=== PATIENT | female | born 1980 | race Caucasian/White ===

== ENCOUNTER → 2016-09-01 | Outpatient (CLI) | payer OTHER | LOC: BMCIMAGING 16:21 | PROVIDERS: ATTEND Nurse Practitioner Adult Health | DX: M25.531 Pain in right wrist (principal) ==

== ENCOUNTER 2017-04-22 12:30 | Day surgery (SDC) | payer MEDICAID ==
[2017-04-22] MEDS ORDERED: LR 1,000 ML IV ONE (12:57)
[2017-04-22] MEDS ORDERED: LIDOCAINE 1% 2 ML INJ ID PRN (12:57)
[2017-04-22] MEDS ORDERED: LIDOCAINE 2% 5 ML SDV ONE (13:34)
[2017-04-22] MEDS ORDERED: PROPOFOL/EMULSION 500 MG/50 ML BOTTLE IV ONE (13:35)
[2017-04-22 13:38] VITALS: PULSE 73; TEMP 97.9
--- NOTE | 2017-04-22 13:39 | PDANEPAE ---
ANE Past Medical History - Cardiovascular History Hx Hypertension: No Hx Arrhythmias: No Hx Chest Pain: No Hx Coronary Artery / Peripheral Vascular Disease: No Hx CHF / Valvular Disease: No Hx Palpitations: No - Pulmonary History Hx COPD: No Hx Asthma/Reactive Airway Disease: No Hx Recent Upper Respiratory Infection: No Hx Oxygen in Use at Home: No Hx Sleep Apnea: No Sleep Apnea Screening Result - Last Documented: Negative - Neurologic History Hx Cerebrovascular Accident: No Hx Seizures: No Hx Dementia: No - Endocrine History Hx Diabetes: No - Renal History Hx Renal Disorders: No - Liver History Hx Hepatic Disorders: No - Neurological & Psychiatric Hx Hx Neurological and Psychiatric Disorders: Yes Neurological / Psychiatric History Comment: Rx for depression,anxiety - Cancer History Hx Cancer: No - Congenital Disorder History Hx Congenital Disorders: No - GI History Hx Gastrointestinal Disorders: Yes Gastrointestinal History Comment: Bloating,diarrhea, gas x years. Gluten-free diet x 6 yrs due to stool sample-test for celiac disease. Gene test:disposition toward celiac. 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 - Chronic Pain History Chronic Pain: No - Surgical History Prior Surgeries: wisdom teeth extraction-Dr's office. ANE Review of Systems Review of Systems: - Exercise capacity METS (RN): 5 METS ANE Patient History - Allergies Allergies/Adverse Reactions: gluten Allergy (Verified 04/07/17 15:36) Penicillins Allergy (Verified 04/07/17 15:35) Hives - Home Medications Home Medications: CIMETIDINE 04/07/17 [Last Taken Unknown] Citalopram 04/07/17 [Last Taken Unknown] - NPO status NPO Since - Liquids (Date): 04/21/17 NPO Since - Liquids (Time): 11:30 NPO Since - Solids (Date): 04/20/17 NPO Since - Solids (Time): 21:00 - Smoking Hx Smoking Status: Never smoked ANE Labs/Vital Signs - Vital Signs Blood Pressure: 107/59 Heart Rate: 73 Respiratory Rate: 16 O2 Sat (%): 100 Height: 154.94 cm Weight: 49.895 kg ANE Physical Exam - Airway Neck exam: FROM Mallampati Score: Class 1 Mouth exam: normal dental/mouth exam - Pulmonary Pulmonary: no respiratory distress, no rales or rhonchi - Cardiovascular Cardiovascular: regular rate and rhythym, no murmur, rub, or gallop, pulses symmetric bilaterally - ASA Status ASA Status: I ANE Anesthesia Plan Anesthesia Plan: MAC
[2017-04-22] MEDS ORDERED: LR 500 ML IV PRN (13:44)
[2017-04-22] MEDS ORDERED: fentaNYL 100 MCG/2 ML INJ IVP PRN (13:44)
[2017-04-22] MEDS ORDERED: DEXAMETHASONE 4 MG/ML VIAL IVP PRN (13:44)
[2017-04-22] MEDS ORDERED: ACETAMINOPHEN 500 MG TAB PO PRN (13:44)
[2017-04-22] MEDS ORDERED: HYDROCODONE/APAP 5/325 TAB PO PRN (13:44)
[2017-04-22] MEDS ORDERED: NALOXONE HCL 0.4 MG/ML INJ IVP PRN (13:44)
[2017-04-22] MEDS ORDERED: OXYCODONE/APAP 5/325 TAB PO PRN (13:44)
[2017-04-22] MEDS ORDERED: ALBUTEROL 3 ML DEYVIAL IH PRN (13:44)
[2017-04-22] MEDS ORDERED: ONDANSETRON 4 MG/2 ML VIAL IVP PRN (13:44)
--- NOTE | 2017-04-22 14:01 | GIREPORT ---
[facility] Surgical Services - Endoscopy Department Patient Name: Vanessa Cristobal Procedure Date: 04/22/2017 1:35 PM Patient Type: Outpatient Attending MD/ ER Physician: Jose Antonio Ace MD Procedure: Colonoscopy Indications: Chronic diarrhea Providers: Jose Antonio Ace MD Medicines: General Anesthesia Complications: No immediate complications. Description of Procedure: After obtaining informed consent, the scope was passed under direct vis ion. Throughout the procedure, the patient's blood pressure, pulse, and oxyg en saturations were monitored continuously. The Colonoscope with irrigatio n channel was introduced through the anus and advanced to 10 cm into the ileum. The entire colon was examined. Findings: The entire examined colon appeared normal on direct and retroflexion vi ews. Biopsies for histology were taken with a cold forceps from the entire c olon for evaluation of microscopic colitis. Terminal ileum was also biopsied . Verification of patient identification for the specimens were done. The se were biopsied with a cold forceps for histology. Estimated Blood Loss: Estimated blood loss: none. Post Op Diagnosis: - The entire examined colon is normal on direct and retroflexion views. - No specimens collected. Recommendation: - Discharge patient to home. - Resume previous diet. - Continue present medications. - Await pathology results. Attending Participation: I personally performed the entire procedure. Jose Antonio Ace MD Jose Antonio Ace MD 04/22/2017 2:00:46 PM This report has been signed electronically.Jose Antonio Ace MD Number of Addenda: 0 Note Initiated On: 04/22/2017 1:35 PM Total Procedure Duration Time 0 hours 7 minutes 15 seconds [email or web address]
--- NOTE | 2017-04-22 14:07 | POSTANESTH ---
Post Anesthetic Evaluation Cardiovascular Status: Normal, Stable Respiratory Status: Normal, Stable Level of Consciousness/Mental Status: Can Participate in Eval Pain Control: Adequate, Prn Tx Ordered Nausea/Vomiting Control: Adequate, Prn Tx Ordered Complications Possibly Related to Anesthesia: None Noted
[2017-04-22 14:28] VITALS: RESP 14
[2017-04-22 14:48] VITALS: BP 93/58; O2SAT 99
== END 2017-04-22 16:18 | disposition home or self-care (01) ==
LOC: FSGY 12:30
PROVIDERS: ATTEND Internal Medicine Gastroenterology
DX: R19.7 Diarrhea, unspecified (principal); R14.0 Abdominal distension (gaseous); K90.0 Celiac disease
CPT/HCPCS: J2704

== ENCOUNTER → 2017-06-17 | Outpatient (CLI) | payer MEDICAID | LOC: FIMAGING 09:15 | PROVIDERS: ATTEND Physician Assistant | DX: R10.11 Right upper quadrant pain (principal) ==

== ENCOUNTER → 2018-08-13 | Outpatient (CLI) | payer MEDICAID | LOC: FIMAGING 07:27 | PROVIDERS: ATTEND Physician Assistant | DX: K76.0 Fatty (change of) liver, not elsewhere classified (principal) ==

== ENCOUNTER → 2018-11-09 | Outpatient (CLI) | payer MEDICAID | LOC: FIMAGING 10:07 | PROVIDERS: ATTEND Family Medicine Sports Medicine | DX: S43.401A Unspecified sprain of right shoulder joint, initial encounter (principal); M75.21 Bicipital tendinitis, right shoulder; M75.31 Calcific tendinitis of right shoulder ==